=== PATIENT | male | born 1940 | race Caucasian/White ===

== ENCOUNTER 2018-12-26 06:32 | Day surgery (SDC) | payer OTHER ==
[~2018-12-26] VITALS: Ht 170.2 cm; Wt 111.3 kg
[~2018-12-26 06:32] MED LIST: ALLO300 PO; ASPI81CH PO; ATOR20 PO; Aspirin EC81 MG PO; Bumetanide1 MG PO; CITA20 PO; CYAN1000I IM; DILT120ERA PO; DOXE0.5 PO; FISH1000 PO; FURO40 PO; Fish Oil 10001000 MG PO; HYDR10 PO; METO100ER PO; METO25 PO; METO50 PO; OMEPRAZOLE MAGN20 MG PO; POTCHL20ER PO; PRAV20 PO; PRAVASTATIN SOD10 MG PO; RANI150 PO; RENAGEL PO; TAMS.4ER PO; VITAMIN D22000 UNIT PO; WARF2.5 PO; WARF5 PO; Zantac150 MG PO
[2018-12-26] MEDS ORDERED: TUMS500 MG PO (07:38)
== END 2018-12-26 09:04 | disposition home or self-care (01) ==
LOC: ORSCSDS 06:32
PROVIDERS: Student in an Organized Health Care Education/Training Program
PROC: 0DBP8ZX Excision of Rectum, Via Natural or Artificial Opening Endoscopic, Diagnostic (ICD-10-PCS; principal; 2018-12-26 08:00)
PROC: 0DBH8ZX Excision of Cecum, Via Natural or Artificial Opening Endoscopic, Diagnostic (ICD-10-PCS; principal; 2018-12-26 08:00)
PROC: 0DBK8ZX Excision of Ascending Colon, Via Natural or Artificial Opening Endoscopic, Diagnostic (ICD-10-PCS; principal; 2018-12-26 08:00)
PROC: 0DBM8ZX Excision of Descending Colon, Via Natural or Artificial Opening Endoscopic, Diagnostic (ICD-10-PCS; principal; 2018-12-26 08:00)
DX: Z12.11 Encounter for screening for malignant neoplasm of colon (principal); Z85.048 Personal history of other malignant neoplasm of rectum, rectosigmoid junction, and anus; D12.2 Benign neoplasm of ascending colon; D12.0 Benign neoplasm of cecum; D12.4 Benign neoplasm of descending colon; K62.1 Rectal polyp; K64.8 Other hemorrhoids; I10 Essential (primary) hypertension; K21.9 Gastro-esophageal reflux disease without esophagitis; I48.91 Unspecified atrial fibrillation; G47.33 Obstructive sleep apnea (adult) (pediatric); E66.9 Obesity, unspecified; Z68.37 Body mass index [BMI] 37.0-37.9, adult; Z79.01 Long term (current) use of anticoagulants; Z79.899 Other long term (current) drug therapy
CPT/HCPCS: 88305; J0461; J2001; J2405; J2704; J7120

== ENCOUNTER 2021-01-25 06:14 | Day surgery (SDC) | payer OTHER ==
[~2021-01-25] VITALS: Ht 167.6 cm; Wt 106.0 kg
[~2021-01-25 06:14] MED LIST changes: +CINA30 PO; +ELIQUIS2.5 MG PO; +FISH OIL 1,0001 EAC8 PO; -FISH1000 PO; +METO100 PO; -METO50 PO; +THERA-D2000 UNIT PO; +TUMS500 MG PO; -VITAMIN D22000 UNIT PO
--- NOTE | 2021-01-25 12:30 | NUR ---
PT FISTULA SUTURE REMOVED, PT ENCOURAGED TO WATCH FOR SIGNS OF INFECTION AND TO TELL DIALYSIS TO MONITOR SITE, IV DC'D INTACT, PT DRESSED, DC'D BY WC BY THIS RN, DAUGHTER DRIVING PT HOME
== END 2021-01-25 11:30 | disposition home or self-care (01) ==
LOC: MHTC 06:14
DX: T82.590A Other mechanical complication of surgically created arteriovenous fistula, initial encounter (principal); N18.6 End stage renal disease; Z88.8 Allergy status to other drugs, medicaments and biological substances
CPT/HCPCS: 36902; 76937; 99152; C1725; C1769; C1887; C1894; J1644; J2250; J3010; J7030; J7050; Q9967

== ENCOUNTER 2022-10-29 13:12 | Emergency (ER) | payer OTHER ==
[~2022-10-29] VITALS: Ht 172.7 cm; Wt 83.0 kg
[~2022-10-29 13:12] MED LIST changes: +ALLO100 PO; +Amlodipine Bes2.5 MG PO; -FISH OIL 1,0001 EAC8 PO; +FISH OIL 1,2001 EAC7 PO; +LOPE2C PO; +METO50ER PO; -PRAVASTATIN SOD10 MG PO
[2022-10-29 13:42] LABS: BASOPHILS ABSOLUTE AUTO 0.07 K/mm3 (0.00-0.23); BASOPHILS PERCENT AUTO 1 % (0-2); EOSINOPHILS ABSOLUTE AUTO 0.03 K/mm3 (0.00-0.68); EOSINOPHILS PERCENT AUTO 0 % (0-6); Hemoglobin 10.6 g/dL (13.5-17.5); IMMATURE GRAN ABSOLUTE AUTO 0.03 K/mm3 (0.00-0.10); IMMATURE GRAN PERCENT AUTO 0 % (0-1); LYMPHOCYTES ABSOLUTE AUTO 0.71 K/mm3 (0.84-5.20); LYMPHOCYTES PERCENT AUTO 9 % (21-46); MONOCYTES ABSOLUTE AUTO 0.67 K/mm3 (0.16-1.47); MONOCYTES PERCENT AUTO 9 % (4-13); Mean Corpuscular HGB 30.7 pg (26.0-34.0); Mean Corpuscular HGB Conc 32.1 g/dL (31.5-36.5); Mean Corpuscular Volume 96 fL (80-100); Mean Platelet Volume 10.5 fL (9.1-12.4); NEUTROPHILS ABSOLUTE AUTO 6.07 K/mm3 (1.96-9.15); NEUTROPHILS PERCENT AUTO 80 % (41-73); Platelet Count 155 K/mm3 (150-400); RDW Coefficient Variation 13.8 % (11.7-14.2); RDW Standard Deviation 48.3 fL (35.1-46.3); Red Blood Cell Count 3.45 M/mm3 (4.30-5.90); White Blood Cell Count 7.58 K/mm3 (4.00-11.30)
[2022-10-29 14:00] LABS: Albumin, Blood 3.6 g/dL (3.4-5.0); Albumin/Globulin Ratio 0.8 (0.8-1.8); Bilirubin, Total 0.8 mg/dL (0.1-1.0); Bun/Creatinine Ratio 8.5 (12.0-20.0); Calcium, Blood 10.6 mg/dL (8.5-10.1); Creatinine, Blood 5.4 mg/dL (0.60-1.20); Globulin, Blood 4.4 g/dL (2.2-4.0); Potassium, Blood 4.8 mmol/L (3.5-5.5)
[2022-10-29 15:45] VITALS: BP 156/110
== END 2022-10-29 16:05 | disposition home or self-care (01) ==
LOC: ER 13:12
PROVIDERS: Physician Assistant
DX: R42 Dizziness and giddiness (principal); Z87.891 Personal history of nicotine dependence; I48.91 Unspecified atrial fibrillation; Z79.899 Other long term (current) drug therapy; Z79.82 Long term (current) use of aspirin; Z88.8 Allergy status to other drugs, medicaments and biological substances
CPT/HCPCS: 70450; 71046; 80053; 85025; 93005; 93010